=== PATIENT | female | born 1980 | race Caucasian/White ===

== ENCOUNTER → 2018-06-02 | Outpatient (CLI) | payer OTHER | LOC: LAB 16:25 → LAB SHORT 16:25 | DX: D48.5 Neoplasm of uncertain behavior of skin (principal); L02.02 Furuncle of face | CPT/HCPCS: 87070; 87077; 87147; 87186; 87205 ==

== ENCOUNTER 2018-11-26 14:36 | Emergency (ER) | payer OTHER ==
[~2018-11-26] VITALS: Ht 157.5 cm; Wt 79.4 kg
[2018-11-26 15:11] LABS: BASOPHILS ABSOLUTE AUTO 0.07 K/mm3 (0.00-0.23); BASOPHILS PERCENT AUTO 1 % (0-2); EOSINOPHILS ABSOLUTE AUTO 0.13 K/mm3 (0.00-0.68); EOSINOPHILS PERCENT AUTO 1 % (0-6); Hematocrit 45.2 % (33.0-51.0); Hemoglobin 14.7 g/dL (11.5-16.0); IMMATURE GRAN ABSOLUTE AUTO 0.03 K/mm3 (0.00-0.10); IMMATURE GRAN PERCENT AUTO 0 % (0-1); LYMPHOCYTES ABSOLUTE AUTO 1.94 K/mm3 (0.84-5.20); LYMPHOCYTES PERCENT AUTO 16 % (21-46); MONOCYTES ABSOLUTE AUTO 0.61 K/mm3 (0.16-1.47); MONOCYTES PERCENT AUTO 5 % (4-13); Mean Corpuscular HGB 29.5 pg (26.0-34.0); Mean Corpuscular HGB Conc 32.5 g/dL (31.5-36.5); Mean Corpuscular Volume 91 fL (80-100); Mean Platelet Volume 8.9 fL (9.1-12.4); NEUTROPHILS ABSOLUTE AUTO 9.55 K/mm3 (1.96-9.15); NEUTROPHILS PERCENT AUTO 78 % (41-73); Platelet Count 327 K/mm3 (150-400); RDW Coefficient Variation 12.8 % (11.7-14.2); RDW Standard Deviation 42.2 fL (35.1-46.3); Red Blood Cell Count 4.99 M/mm3 (3.80-5.20); White Blood Cell Count 12.33 K/mm3 (4.00-11.30)
[2018-11-26 15:43] LABS: Alanine Aminotransfer (ALT/SGP 45 U/L (12-78); Albumin, Blood 4.3 g/dL (3.4-5.0); Alk Phos 66 U/L (50-136); Anion Gap 6 mmol/L (6-16); Aspartate Aminotrans (AST/SGOT 28 U/L (12-37); Bilirubin, Total 0.5 mg/dL (0.1-1.0); Blood Urea Nitrogen 12 mg/dL (8-24); CO2, Blood 27 mmol/L (21-32); Calcium, Blood 9.6 mg/dL (8.5-10.1); Chloride, Blood 107 mmol/L (98-108); Creatinine, Blood 0.75 mg/dL (0.40-1.00); Globulin, Blood 4.2 g/dL (2.2-4.0); Glomerular Filtration Rate >60 (60-); Glucose, Blood 90 mg/dL (70-99); Potassium, Blood 4.3 mmol/L (3.5-5.5); Sodium, Blood 140 mmol/L (136-145); Total Protein, Blood 8.5 g/dL (6.4-8.2)
[2018-11-26] MEDS ORDERED: ALBU90OI INH (17:46)
[2018-11-26] MEDS ORDERED: MONT10T PO (17:46)
[2018-11-26] MEDS ORDERED: MOTION RELIEF25 MG PO (18:03)
== END 2018-11-26 18:27 | disposition home or self-care (01) ==
LOC: ER 14:36
PROVIDERS: Physician Assistant
DX: R42 Dizziness and giddiness (principal)
CPT/HCPCS: 36415; 70450; 80053; 85025; 99284-25

== ENCOUNTER → 2021-01-16 | Outpatient (CLI) | payer OTHER ==
[~2021-01-16] MED LIST: ALBU90OI INH; MONT10T PO; MOTION RELIEF25 MG PO
== END | disposition home or self-care (01) ==
LOC: LAB SHORT 10:00 → LAB 10:00
DX: R30.0 Dysuria (principal)
CPT/HCPCS: 87077; 87086; 87186